=== PATIENT | male | born 1950 | race Caucasian/White ===

== ENCOUNTER → 2017-08-18 | Day surgery (SDC) | payer MEDICARE, BC ==
[~2017-08-18] MED LIST: Lactated Ringers 1,000 ML IV SCH; Propofol 200 MG/20 ML SDV IV ONE
--- NOTE | 2017-08-18 09:13 | OR ---
DATE OF OPERATION: 08/18/2017 PREOPERATIVE DIAGNOSIS: FOLLOWUP POLYPS. POSTOPERATIVE DIAGNOSIS: FOLLOWUP POLYPS. SURGEON: Seth Rodriguez MD PROCEDURE: FULL-LENGTH COLONOSCOPY WITH POLYP REMOVAL X4. ANESTHESIA: [employer]. COMPLICATIONS: None. SPECIMEN: Polyps x4. FINDINGS: 1. Full-length colonoscopy. 2. 4 separate polyps, 3 hyperplastic and 1 small villous lesion. RECOMMENDATIONS: Followup colonoscopy in 5 years. INDICATIONS: The patient has a prior history of polyp removal, so he was sent for a repeat scope for surveillance. DESCRIPTION OF PROCEDURE: The patient was prepped and draped, placed in the left lateral decubitus position. A lubricated Olympus colonoscope was inserted and easily advanced to the cecum. Direct visualization of the ileocecal valve and appendiceal orifice was accomplished. Bowel prep was adequate. Upon withdrawal of the scope, cecum and ascending colon appeared benign. At the hepatic flexure, the patient had a small villous adenoma, flattened on the backside of the haustral fold, very difficult to get out with a snare. We elected to remove it with 4 separate cold forceps biopsies without complication. Resolution of bleeding was spontaneous and lesion removed in its entirety. The rest of the transverse colon was unremarkable. At the splenic flexure, the patient had a small hyperplastic polyp removed in its entirety with 2 cold forceps biopsies. The descending colon was otherwise benign. Throughout the sigmoid colon, I found no signs of any significant diverticula, vascular abnormalities, bleeding sites or signs of colitis. There was a 2nd small hyperplastic polyp in the mid sigmoid colon also removed with a cold forceps biopsy in its entirety. In the rectal vault, the patient had a 3rd small hyperplastic polyp, again removed with cold forceps without complication. Retroflexion of scope in the rectum showed no perianal lesions. Air was suctioned. Scope was removed without complications. BENJAMIN/RODRIGO /[id number]
== END ==
LOC: CC.SDS 06:33
PROVIDERS: ATTEND Family Medicine
DX: Z12.11 Encounter for screening for malignant neoplasm of colon (principal); D12.5 Benign neoplasm of sigmoid colon; D12.4 Benign neoplasm of descending colon; D12.3 Benign neoplasm of transverse colon; K62.1 Rectal polyp; I10 Essential (primary) hypertension; E78.5 Hyperlipidemia, unspecified; N40.0 Benign prostatic hyperplasia without lower urinary tract symptoms; Z79.82 Long term (current) use of aspirin; Z79.899 Other long term (current) drug therapy; Z86.010 Personal history of colon polyps; Z91.041 Radiographic dye allergy status; F17.210 Nicotine dependence, cigarettes, uncomplicated
CPT/HCPCS: J2704; J7120

== ENCOUNTER 2022-09-22 13:20 | Observation (INO) | payer MEDICARE, BC ==
[2022-09-22 13:45] LABS: CHLORIDE,CL 104 mEq/L (98-106); SODIUM,NA 140 mEq/L (136-145)
[2022-09-22 13:56] LABS: ESTIMATED GFR 46 mL/min (>=60)
[2022-09-22] MEDS ORDERED: Ondansetron 4 MG Tab.DIS PO PRN (14:21)
[2022-09-22] MEDS ORDERED: Sodium Chloride 0.9% 10 ML Syringe FLUSH PRN (14:21)
[2022-09-22] MEDS ORDERED: Acetaminophen 325 MG Tab PO PRN (14:21)
[2022-09-22] MEDS ORDERED: Ondansetron 4 MG/2 ML SDV IV PRN (14:21)
[2022-09-22] MEDS ORDERED: Pantoprazole 40 MG in Sodium Chloride 0.9% 100 ML IV SCH (15:30)
[2022-09-22] MEDS: Sodium Chloride 0.9% 500 ML IV ONE (15:50)
[2022-09-22] MEDS: Pantoprazole 40 MG Vial IVPUSH ONE (16:23)
[2022-09-23] MEDS: Lactated Ringers 1,000 ML IV SCH (12:03)
== END 2022-09-23 14:20 | disposition home or self-care (01) ==
LOC: CC.MS 13:20 → CC.FCMC 13:20 → INTOOBSV 14:07 → UNDOADMOB 14:07 → CC.MS 14:07
PROVIDERS: ADMIT Nurse Practitioner Family; ATTEND Nurse Practitioner Family
DX: K29.80 Duodenitis without bleeding (principal); K31.A0 Gastric intestinal metaplasia, unspecified; K31.89 Other diseases of stomach and duodenum; K25.9 Gastric ulcer, unspecified as acute or chronic, without hemorrhage or perforation; K29.70 Gastritis, unspecified, without bleeding; D62 Acute posthemorrhagic anemia; R71.0 Precipitous drop in hematocrit; N28.9 Disorder of kidney and ureter, unspecified; Z20.822 Contact with and (suspected) exposure to COVID-19; Z91.041 Radiographic dye allergy status; Z79.899 Other long term (current) drug therapy
CPT/HCPCS: 00731; 36415; 80053; 85014; 85018; 85025; 87081; 88305; 88341; 88342; 96361; 96374; C9113; G0378; J7040; J7120; U0002

== ENCOUNTER 2023-10-26 07:24 | Day surgery (SDC) | payer MEDICARE, BC ==
[2023-10-26] MEDS: Cyclopentolat/Tropic/Phenyleph 1 ML Ophth Drop SDV EYERT SCH (07:42)
[2023-10-26] MEDS: Lactated Ringers 1,000 ML IV SCH (07:44)
[2023-10-26] MEDS ORDERED: Midazolam 1 MG/ML 2 ML SDV ONE (07:55)
[2023-10-26] MEDS ORDERED: fentaNYL 50 MCG/ML SDV ONE (07:55)
[2023-10-26] MEDS: Lidocaine 1% 5 ML VIAL INJECT ONE (08:08)
[2023-10-26] MEDS: Phenyleprhine/Ketorolac 4 ML Vial IO ONE (08:08)
[2023-10-26] MEDS: Tetracaine HCl/PF 0.5% 4 ML Bottle EYERT ONE (08:08)
[2023-10-26] MEDS: MOXIFLOXACIN PF in BSS 1 MG/ML VIAL ICORN ONE (08:08)
[2023-10-26] MEDS: Brimonidine 0.2% Ophth Soln 5 ML Bottle EYERT ONE (08:08)
[2023-10-26] MEDS: Povidone-Iodine 5% Sterile Ophth Soln 30 ML Bottle EYERT ONE (08:08)
[2023-10-26] MEDS ORDERED: acetaZOLAMIDE 500 MG Cap.ER ONE (09:11)
[2023-10-26] MEDS: acetaZOLAMIDE 500 MG Cap.ER PO ONE (09:13)
== END 2023-10-26 09:30 | disposition home or self-care (01) ==
LOC: CC.SDS 07:24
PROVIDERS: ATTEND Ophthalmology
DX: H26.9 Unspecified cataract (principal); H57.03 Miosis; I10 Essential (primary) hypertension; J44.9 Chronic obstructive pulmonary disease, unspecified; N40.0 Benign prostatic hyperplasia without lower urinary tract symptoms; E78.5 Hyperlipidemia, unspecified; Z79.899 Other long term (current) drug therapy
CPT/HCPCS: 00142; 99100; A9270-GY; J1097; J2250; J3010; J3490; J7120; V2632

== ENCOUNTER 2023-11-23 06:22 | Day surgery (SDC) | payer MEDICARE, BC ==
[2023-11-23] MEDS: Cyclopentolat/Tropic/Phenyleph 1 ML Ophth Drop SDV EYELF SCH (06:57)
[2023-11-23] MEDS: Lactated Ringers 1,000 ML IV SCH (06:58)
[2023-11-23] MEDS ORDERED: Midazolam 1 MG/ML 2 ML SDV ONE (07:30)
[2023-11-23] MEDS ORDERED: fentaNYL 50 MCG/ML SDV ONE (07:30)
[2023-11-23] MEDS: Brimonidine 0.2% Ophth Soln 5 ML Bottle EYELF ONE (07:37)
[2023-11-23] MEDS: Povidone-Iodine 5% Sterile Ophth Soln 30 ML Bottle EYELF ONE (07:38)
[2023-11-23] MEDS: MOXIFLOXACIN PF in BSS 1 MG/ML VIAL ICORN ONE (07:38)
[2023-11-23] MEDS: Phenyleprhine/Ketorolac 4 ML Vial IR ONE (07:38)
[2023-11-23] MEDS: Tetracaine HCl/PF 0.5% 4 ML Bottle EYELF ONE (07:38)
[2023-11-23] MEDS: Lidocaine 1% 5 ML VIAL INJECT ONE (07:38)
[2023-11-23] MEDS: acetaZOLAMIDE 500 MG Cap.ER PO ONE (08:11)
== END 2023-11-23 08:45 | disposition home or self-care (01) ==
LOC: CC.SDS 06:22
PROVIDERS: ATTEND Ophthalmology
DX: H26.8 Other specified cataract (principal); H57.03 Miosis; I10 Essential (primary) hypertension; E78.5 Hyperlipidemia, unspecified; J44.9 Chronic obstructive pulmonary disease, unspecified; C44.212 Basal cell carcinoma of skin of right ear and external auricular canal; Z79.899 Other long term (current) drug therapy
CPT/HCPCS: A9270-GY; J1097; J2250; J3010; J3490; J7120; V2632